=== PATIENT | male | born 2000 | race Caucasian/White ===

== ENCOUNTER 2024-08-12 06:41 | Outpatient (CLI) | payer BC, SELFPAY ==
--- OUTSIDE RECORDS SUMMARY | 2024-08-12 06:44 | XMS_ITS | Data Portability ---
Author Organization SHANTEL SILVA [facility] [place] Address [address] [place] [address] Care Team Providers Care Clinical Aide Name Role Phone [facility] Primary Care Pro vider Assessment No assessment recorded. Plan of Treatment Reminders Order Date Submit Date Provider Last Modified By Organization Details Last Modified Time Details Appointments None recorded. Lab None recorded. Referral None recorded. Procedures upper endoscopy procedure (EGD) (PROC) 2022 023 [email or web address] [address] [facility], [place], [address], 3 15:24:22 esophagogas troduodenos copy with esophageal dilation (PROC) 2022 023 JUAN DAVID Not available 3 17:20:56 Surgeries None recorded. Imaging None recorded. Medication Orders None recorded. Patient TargetsNo targets recorded. Patient InstructionsNo instructions recorded. Reason for Referral None Reported. Results Created Date Observation Date Name Description Value Unit Range Abnormal Flag Note LastModifiedBy Organization Detail LastModifiedTime Result Notes None recorded. Problems Name Problem SNOMED Code Status Onset Date Resolution Date Notes Provider Name and Address Organization Details Recorded Time Depressive disorder 20048855 Active 2022 SHANTEL Ashton [facility] & [place] 3 13:29:10 Dysphagia 74517509 Active 2022 SHANTEL Ashton [facility] & [place] 3 13:37:22 Suicidal 170035069 Active 2022 Bridget teixeira, [place] - [facility] - [place] & [place] 3 13:37:31 Gastro-esopha geal reflux disease with esophagitis 824237327 Active 2022 Marquita Torres NP [address], [address], [place], [address], [place] - [facility] [place] & [place] 3 13:46:24 Stricture of esophagus 40254345 Active 2022 Marquita Torres NP [address], [address], [place], [address], [place] - [facility] - [place] & [place] 15:07:55 Problem Notes None recorded. Procedures Surgical History Date Name Laterality Status Provider Name and Address Organization Details Recorded Time 01/21/2023 EGD/Endosc opy completed Christianne Elam SHANTEL - [facility] - [place] & [place] 01/23/2023 15:54:09 12/17/2022 EGD/Endosc opy completed Christianne Elam SHANTEL - [facility] - [place] & [place] 12/31/2022 14:21:49 07/16/2022 EGD/Endosc opy completed Marquita Torres NP [address], [address], [place], [address], [place] - [facility] [place] & [place] 07/23/2022 13:42:24 Imaging Results None recorded. Procedure Notes None recorded. Medical Equipment None Reported. Allergies No known drug allergies Medications Name Sig Start Date Stop Date Status Note LastModified by Organization Details LastModified Time quetiapine 25 mg tablet TAKE 1 TABLET BY MOUTH ONCE DAILY AT BEDTIME active Not Available Not Available No t Available venlafaxine ER 37.5 mg capsule,ext ended release 24 hr TAKE 1 CAPSULE BY MOUTH ONCE DAILY active Not Available Not Available No t Available paroxetine 10 mg tablet active Not Available Not Available Not Available trazodone 50 mg tablet TAKE 1 TABLET BY MOUTH ONCE DAILY AT BEDTIME 07/23 completed Not Available Not Available Not Available prednisone 20 mg tablet TAKE 1 TABLET BY MOUTH THREE TIMES DAILY FOR 3 DAYS active Not Available Not Available No t Available lithium carbonate 150 mg capsule TAKE 1 CAPSULE BY MOUTH ONCE DAILY IN THE MORNING active Not Available Not Available No t Available oxcarbazepi ne 300 mg tablet active Not Available Not Available Not Available amitriptyli ne 50 mg tablet TAKE 1 TABLET BY MOUTH ONCE DAILY AT BEDTIME FOR 30 DAYS active Not Available Not Available No t Available amitriptyli ne 25 mg tablet TAKE 1 TABLET BY MOUTH ONCE DAILY AT BEDTIME FOR 30 DAYS active Not Available Not Available No t Available lithium carbonate 300 mg capsule TAKE 1 CAPSULE BY MOUTH ONCE DAILY AT BEDTIME active Not Available Not Available No t Available paroxetine 20 mg tablet TAKE 1 TABLET BY MOUTH ONCE DAILY FOR ANXIETY active Not Available Not Available No t Available pantoprazol e 40 mg tablet,lola yed release Take 1 tablet twice a day by oral route for 30 days. 2022 active Not Available Not Available Not Avai lable bupropion HCl 75 mg tablet TAKE 1 TABLET BY MOUTH TWICE DAILY FOR DEPRESSIO N. DOSES AT 9AM AND 3PM. CRUSH ALL MEDICATIO NS THAT ARE NOT SUSTAINED RELEASE active Not Available Not Available No t Available mirtazapine 15 mg tablet TAKE 1 TABLET BY MOUTH ONCE DAILY active Not Available Not Available No t Available albuterol sulfate HFA 90 mcg/actuati on aerosol inhaler INHALE 2 PUFFS BY MOUTH EVERY 4 HOURS NEEDED active Not Available Not Available No t Available fluoxetine 20 mg capsule TAKE 1 CAPSULE BY MOUTH ONCE DAILY 07/23 completed Not Available Not Available Not Available amoxicillin 875 mg-potassiu m clavulanate 125 mg tablet active Not Available Not Available Not Available aripiprazol e 5 mg tablet TAKE 1 TABLET BY MOUTH AT BEDTIME FOR DEPRESSIO N active Not Available Not Available No t Available bupropion HCl XL 150 mg 24 hr tablet, extended release TAKE 1 TABLET BY MOUTH ONCE DAILY active Not Available Not Available No t Available Vraylar 1.5 mg capsule TAKE 1 CAPSULE BY MOUTH ONCE DAILY active Not Available Not Available No t Available Vraylar 4.5 mg capsule TAKE 1 CAPSULE BY MOUTH ONCE DAILY active Not Available Not Available No t Available Vraylar 3 mg capsule TAKE 1 CAPSULE BY MOUTH ONCE DAILY active Not Available Not Available No t Available Vitals Date Recorded Body height Body mass index (BMI) Body weight Body temperature Oxygen saturation Oxygen saturation in Arterial blood by Pulse oximetry Heart rate Provider Name and Address Organization Details Last Updated DateTime 3 177.8 cm 28.1 kg/m2 69531.1 g 97.7 [degF] 98 % 98 % 95 /min Bridget FUNES BRANDOR [facility] & [place] 3 13:02:19 Date Recorded Body height Body mass index (BMI) Body weight Body temperature Oxygen saturation Oxygen saturation in Arterial blood by Pulse oximetry Heart rate Provider Name and Address Organization Details Last Updated DateTime 3 177.8 cm 28.4 kg/m2 72810.2 9 g 97.6 [degF] 98 % 98 % 86 /min Bridget Burns LPR [facility] & [place] 3 13:22:53 Date Recorded Body height Body mass index (BMI) Body weight Body temperature Oxygen saturation Oxygen saturation in Arterial blood by Pulse oximetry Heart rate Provider Name and Address Organization Details Last Updated DateTime 3 177.8 cm 29.3 kg/m2 39200.8 4 g 97.4 [degF] 99 % 99 % 87 /min Christianne FUNES [facility] & [place] 3 14:19:24 Social History Question Answer Notes LastModified by Organizat ion Details LastModified Time Tobacco Smoking Status Current Every Day Smoker Bridget teixeira SHANTEL [facility] & [place] 07/23/2022 13:37:58 What Is Your Level Of Alcohol Consumption? Occasional [email or web address] Information not available 07/23/2022 Sex: Male Functional Status None recorded. Mental Status None recorded. Family History Relationship Description Onset Age of this Age Resolved Age Notes LastModified by Organization Details LastModified Time Father Diabetes mellitus [email or web address] Not available 07/23 13:37:48 Medical History Condition Response Anxiety Disorder Y Depression Y Past Encounters Encounter ID Performer Location Encounter Start Date Encounter Closed Date Diagnosis/Indication Diagnosis SNOMED-CT Code Diagnosis ICD10 Code Diagnosis Note [id number] Marquita Torres NP [facility] [address] [place] [id number] 07/23/2022 12:45:13 07/23/2022 14:06:36 Gastro-esophageal reflux disease with esophagitis 669976589 K21.00 Slight increase in eosinophil s noted on pathology. Patient continues daily PPI with improvemen t of symptoms at this time. Recommend continued use. Will continue to monitor. Stricture of esophagus 34263874 K22.2 dilated up to 8 mm on EGD 07/16/2022 . Recommend repeat EGD for further evaluation dilatation . [id number] Marquita Torres NP [facility] [address] [place] [address] [place] [id number] 09/24/2022 13:06:20 09/24/2022 14:28:37 Gastro-esophageal reflux disease with esophagitis 907219585 K21.00 Controlled with daily PPI. Recommend continued use. Stricture of esophagus 58660009 K22.2 Dilated up to 8 mm on EGD 07/16/2022 . Patient was scheduled for repeat EGD with dilatation however cancelled procedure. He would like to hold off on scheduling at this time as he reports only mild symptoms at this time. Risks including food impaction were discussed with patient in clinic today. He was encouraged to contact our clinic if he experience s recurrent symptoms or decides to schedule EGD. He did voice understand ing. [id number] [facility] ions at [place] [address] [facility] SHANTEL GARCIA [address] 11/17/2022 15:41:46 11/24/2022 16:25:06 [id number] [facility] Intervent ions at [address] SHANTEL GARCIA [address] 12/05/2022 11:21:16 12/05/2022 11:52:03 [id number] DARRYL Zelaya [facility] [address] [place] [address] desiree Christopher SH[place]EL [place] [id number] 12/31/2022 13:55:02 12/31/2022 15:49:28 Esophageal dysphagia 98196495 R13.19 Most recent EGD from 12/17/22 notable for severe stricture in the proximal esophagus, dilated to 12 mm. Pt notes some improvemen t, continues to have difficulty swallowing large pills. We will get him scheduled in short term follow up EGD. EGD scheduled for 01/21/23. Erosive esophagitis 4070 9000 K22.10 Continue BID PPI at this time. Will evaluate further at time of repeat EGD. Health Concerns Section Related Observation LastModified by Organization Detai ls LastModified Time None Recorded Concern Status LastModified by Organization Details LastModified Time None Recorded Advance Directives Directive None Recorded Payers Encounter Date Sequence Insurance Name Policy Number Policy Garcia Covered Member ID Garcia Member ID Guarantor Name 07/23/2022 1 [place] [id number] Santy T Erik [id number] Santy Erik 09/24/2022 1 [place] [id number] Santy T Erik [id number] Santy Erik 12/31/2022 1 [place] [id number] Santy T Erik [id number] Santy Erik Notes Date Note Type Note Provider Name and Address Organization Details Recorded Time 07/23/2022 text/html Patient returns to clinic today for follow-up on EGD 07/16/2022. EGD with severe stricture noted which the scope could not bypass. Dilatation was performed with dilating balloon up to 8 mm. Pathology slightly increased eosinophils. Patient continues pantoprazole 40 mg daily with improved symptoms of dysphagia at this time. No abdominal pain, N/V. Marquita Torres NP [address] [facility], [facility] [address], [address], [facility] 08/04/2022 15:09:24 09/24/2022 text/html Patient returns to clinic today for follow up. He was previously scheduled for repeat EGD wtih dilation however canceled. He continues Pantoprazole 40 mg daily. Reports only mild dysphagia to medications first thing in the morning. EGD 07/16/22 with severe stricture noted which the scope could not bypass. Dilatation was performed with dilating balloon up to 8 mm. Marquita Torres NP [address] [facility], [address], [address], [facility] 09/24/2022 14:16:29 12/31/2022 text/html This is a 22-year-old male seen today in follow up. He underwent EGD initially in June 2022 for severe dysphagia, severe stricture noted at that time of proximal esophagus, dilated to 8 mm. He did not keep scheduled f/u however was readmitted to [facility] psych unit recently and noted severe dysphagia with swallowing pills. EGD performed 12/17/22 showed esophageal stricture again in the proximal esophagus, dilation achieved to 12 mm. Severe erosive esophagitis noted. He has been on BID PPI therapy since that time. States he still has some issues swallowing large pills but overall is noticing some improvement of dysphagia. DARRYL Zelaya [address] [place] [address] Drive, [address], [place], [address], [facility] - [place] - [place] & [place] 12/31/2022 15:37:34
--- NOTE | 2024-08-12 07:00 | CT_ITS ---
FINAL REPORT TECHNIQUE: Multiple axial CT sections were performed through the face without IV contrast. Coronal and sagittal reconstruction images were performed. This study was performed with techniques to keep radiation doses as low as reasonably achievable (ALARA). Individualized dose reduction techniques using automated exposure control or adjustment of mA and/or kV according to the patient's size were employed. CLINICAL HISTORY: Chronic sinusitis/nasal blockage COMPARISON: None FINDINGS: There is extensive lobular mucoperiosteal thickening throughout the maxillary, ethmoid, frontal, and sphenoid sinuses. There is near complete opacification of the frontal and ethmoid sinuses. There is complete obstruction of the ostiomeatal units bilaterally. There is an air-fluid level in the left maxillary sinus. The mastoid air cells are hypoplastic. IMPRESSION: Acute and chronic pansinusitis with bilateral obstructed ostiomeatal units. Reviewed, Interpreted and Dictated by Zev Merritt MD Transcribed by Michelle aRy Authenticated and [facility]
== END 2024-08-12 23:59 | disposition home or self-care (01) ==
LOC: RAD 06:42
PROVIDERS: PCP Nurse Practitioner; Visit Provider Nurse Practitioner
DX: J32.4 Chronic pansinusitis (principal)
CPT/HCPCS: 70486

== ENCOUNTER 2025-03-22 18:56 | Emergency (ER) | payer BC, SELFPAY ==
--- OUTSIDE RECORDS SUMMARY | 2025-02-02 13:30 | XMS_ITS | Encounter Summary ---
Author Organization Healthcare Address [address] [place] [address] Care Team Providers Care Retail Event And Sales Assistant Name Role Phone Gwyn Green MD Primary Care Provider [phone] Reason for Visit * Reason Comments Follow-up Encounter Details Date Type Department Care Team (Late st Contact Info) Description 02/02/2025 2:30 PM EDT [facility] Visit [facility] [address] [place] [address] Clinton Wilson MD [address] [place] [address] History of endoscopic sinus surgery (Primary Dx); History of nasal septoplasty; Nasal polyp Social History Tobacco Use Types Packs/Day Years Used Date Smoking Tobacco: Never Passive Smoke Exposure: Past Smokeless Tobacco: Never Tobacco Cessation:Counseling Given: Not Answered Alcohol Use Standard Drinks/Week Comments Never 0 (1 standard drink = 0.6 oz pur e alcohol) AUDIT-C Answer Date Recorded Q1: How often do you have a drink containing alcohol? Never 10/06/2024 Q2: How many drinks containi ng alcohol do you have on a typical day when you are drinking? Patient does not drink Q3: How often do you have si x or more drinks on one occasion? Never 10/06/2024 Sex and Gender Information Value Date Recorded Sex Assigned at Not on file Legal Sex Male 6:03 PM EDT Gender Identity Not on file Sexual Orientation Not on file documented as of this encounter Last Filed Vital Signs Vital Sign Reading Time Taken Comments Blood Pressure 128/75 02/02/2025 2:25 PM EDT Pulse 78 02/02/2025 2:25 PM EDT Temperature - - Respiratory Rate - - Oxygen Saturation - - Inhaled Oxygen Concentration - - Weight 111 kg (244 lb 11.4 oz) 02/02/2025 2:25 P M EDT Height 172.7 cm (5' 8 ) 02/02/2025 2:25 PM EDT Body Mass Index 37.21 02/02/2025 2:25 PM EDT documented in this encounter Miscellaneous Notes * Progress Notes - Jarret Alexander MD - 02/02/2025 2:30 PM EDT Santy Valencia is a 24 y.o. male history of septoplasty and endoscopic sinus surgery with me on 01-11-25 who was seen back in the [facility] today in follow up regardingright eye pain in the postoperative. Patient reports that he has had worsening right eye pain and vision changes since surgery. Initially he reports it was a constant pressure but now has become fairly constant sharp eye pain. Particularly he isolates the pain to the inferior medial aspect of the orbital. He also reports intermittent vision changes. Particularly he endorses blurry vision 20-30 minutes but for the 1st time this morning it lasted 3-4 hours. Episode has resolved spontaneously. Also reports intermittent epistaxis which initially started on the right side but is on the left today.He reports he has been doing nasal irrigations daily and trying to remember to do them twice daily he also has done the propylene glycol nasal sprays. His 14 point review of systems, family and social history are otherwise negative as reported by ourpatient history form. He denies any constitutional symptoms. Current Medications[1] Allergies: Pineapple PERTINENT SOCIAL HISTORY: He reports no history of alcohol use. He reports no history of drug use. He reports that he has never smoked. He has been exposed to tobacco smoke. He has never used smokeless tobacco. BP 128/75 (BP Location: Left arm, Patient Position: Sitting, BP Cuff Size: Large adult) Pulse 78 Ht 1.727 m (5' 8 ) Wt 111 kg (244 lb 11.4 oz) BMI 37.21 kg/m?? Physical examination today reveals a severely obese (BMI 35-40) male in no apparent distress normal extraocular. Extraocular motions intact without pain. Appropriate pupillary response to light. Mild periorbital edema on the right with tenderness to palpation of inferior orbital rim. Procedure: Nasal/sinus debridement Indications: Chronic rhinosinusitis following ESS Anesthesia: Topical Consent: Verbal consent obtained Description: The patient's nose was topically prepped with 2% lidocaine/phenylephrine nasal spray. Several minutes were observed for the medication to work. The right nasal passage was examined with a 30?? 2.8 mm wide angle nasal endoscope and mild crusting was noted that was debrided under endoscopic guidance with a variety of forceps and suctions. The ostiomeatal complex was noted to be patent , inflamed consistent with polypoid changes. Scope exam today shows mild crusting in right and inflammatory changes. I suspect these postoperative inflammatory changes are putting pressure on the periorbita and resulting in the patient's visionchanges and pain. I would like him to start prednisone taper as I suspect this will significantly improve his swelling in the symptoms. The patient was given instructions on nasal care and reminded of the importance of hydration and lubrication, steaming, and saline irrigations and will follow-up with me in in a month. The patient was seen and examined with Dr. Alexander and I agree with his assessment and plan as described in our note. Digital speech recognition software was used to dictate this note and, despite allefforts to proofread, some dictation errors may occur. Complexity of Care: The evaluation of this patient today was of LOW COMPLEXITY in the medical decision-making process. The number of diagnoses and management options necessary for their evaluation were 1 self limited orminor problem and 1 acute complicated injury, the amount and/or complexity of the data that I reviewed was LEVEL: Straight-forward (Minimal or none) and the risks of complications and/or morbidity ormortality of the recommendations for this patient's care were LEVEL Straight-Forward (Minimal). [1] Current Outpatient Medications: Breyna 160-4.5 MCG/ACT inhaler, Inhale 2 puffs 2 times a day., Disp: , Rfl: escitalopram (Lexapro) 10 MG tablet, Take 1 tablet by mouth daily., Disp: , Rfl: Hypertonic Nasal Wash (Sinus Rinse Bottle Kit) pack, Administer 1 Squirt into each nostril 3 times a day., Disp: 5 each, Rfl: 3 ipratropium-albuterol (Duo-Neb) 0.5-2.5 mg/3 mL nebulizer solution, USE 1 AMPULE IN NEBULIZER 4 TIMES DAILY NEEDED, Disp: , Rfl: ondansetron ODT (Zofran-ODT) 4 MG disintegrating tablet, Dissolve 1 tablet on the tongue every 8 hours as needed for nausea or vomiting., Disp: 20 tablet, Rfl: 0 PARoxetine (Paxil) 20 MG tablet, Take 1 tablet by mouth daily., Disp: , Rfl: propylene glycol 15 % nasal spray, Administer 2 sprays into each nostril every 1 hour. Every 1 hourwhile awake, Disp: 50 mL, Rfl: 3 HYDROcodone-acetaminophen ([place]) 5-325 MG tablet, Take 1 tablet by mouth every 6 hours as needed for severe pain. (Patient not taking: Reported on 02/02/2025), Disp: 25 tablet, Rfl: 0 Cosigned by Clinton Wilson MD at 02/03/2025 7:57 AM EDT Associated attestation - Clinton Wilson MD - 02/03/2025 7:57 AM EDT The patient was seen and examined with Dr. Alexander, I discussed and I agree with their assessment and plan as described in our note. I was also present for the procedures performed. documented in this encounter Plan of Treatment Not on file documented as of this encounter Visit Diagnoses Diagnosis History of endoscopic sinus surgery- Primary History of nasal septoplasty Other postprocedural status Nasal polyp Unspecified nasal polyp documented in this encounter Additional Health Concerns Assessment Noted Time A Body Mass Index follow-up plan has been documented for the patient 02/03/2025 7:57 AM EDT documented as of this encounter Care Teams Retail Event And Sales Assistant Relationship Specialty Start Date End Date Gwyn Green MD [address] [place] [address] PCP - General 09/07/20 documented as of this encounter
--- OUTSIDE RECORDS SUMMARY | 2025-03-03 10:50 | XMS_ITS | Encounter Summary ---
Author Organization Healthcare Address [address] [place] [address] Care Team Providers Care Diagnostic Assistant Name Role Phone Gwyn Green MD Primary Care Provider [phone] Encounter Details Date Type Department Care Team (Late st Contact Info) Description 03/03/2025 10:50 AM EST Office Visit [place] [facility] Ot[facility]ology [address], [address] [place] [address] Clinton Wilson MD [address] [place] [address] History of endoscopic sinus surgery (Primary Dx); Nasal crusting; Nasal polyp Social History Tobacco Use Types [...] Sign Reading Time Taken Comments Blood Pressure 134/83 03/03/2025 10:56 AM EST Pulse 93 03/03/2025 10:56 AM EST Temperature - - Respiratory Rate - - Oxygen Saturation - - Inhaled Oxygen Concentration - - Weight 116 kg (255 lb 11.7 oz) 03/03/2025 10:56 AM EST Height 175.3 cm (5' 9 ) 03/03/2025 10:56 AM EST Body Mass Index 37.77 03/03/2025 10:56 AM EST documented in this encounter Miscellaneous Notes * Progress Notes - Mindi Marshall MD - 03/03/2025 10:50 AM EST Santy Valencia is a 24 y.o. male history of septoplasty and endoscopic sinus surgery with wv on 01-11-25 who was seen back in the [facility] today in follow up after surgery. He reports his eye symptoms have resolved since his last visit. He is using his rinses twice daily and reports this is working well for him. His 14 point review of systems, family [...] He has never used smokeless tobacco. BP 134/83 (BP Location: Left arm, Patient Position: Sitting, BP Cuff Size: Large adult) Pulse 93 Ht 1.753 m (5' 9 ) Wt 116 kg (255 lb 11.7 oz) BMI 37.77 kg/m?? Physical examination today reveals a severely obese (BMI 35-40) male in no apparent distress normal extraocular. Extraocular motions intact without pain. No periorbital edema or erythema. Procedure: Nasal/sinus debridement Indications: Chronic rhinosinusitis following ESS Anesthesia: Topical Consent: Verbal consent obtained Description: The patient's nose was topically prepped with 2% lidocaine/phenylephrine nasal spray. Several minutes were observed for the medication to work. The right nasal passage was examined with a 30?? 2.8 mm wide angle nasal endoscope and mild crusting was noted on the right along the ethmoidsand maxillary antrostomy. that was debrided under endoscopic guidance with a variety of forceps andsuctions. The ostiomeatal complex was noted to be patent inflamed consistent with polypoid changes bilaterally. The Chika score was 2 bilaterally. Scope exam today shows mild crusting in right and continued polypoid inflammatory changes. Based onhis exam today, I recommend starting Dupixent. He has filled out the paperwork and will hopefully start this soon. His postoperative eye symptoms have resolved. The patient was given instructions on nasal [...] awake, Disp: 50 mL, Rfl: 3 HYDROcodone-acetaminophen (Cameron) 5-325 MG tablet, Take 1 tablet by mouth every 6 hours as needed for severe pain. (Patient not taking: Reported on 03/03/2025), Disp: 25 tablet, Rfl: 0 Cosigned by Clinton Wilson MD at 03/06/2025 7:59 AM EST Associated attestation - Clinton Wilson MD - 03/06/2025 7:59 AM EST The patient was seen and examined with Dr. Marshall, I discussed and I agree with their assessment and plan as described in our note. I was also present for the procedures performed. documented in this encounter Plan of Treatment Not on file documented as of this encounter Visit Diagnoses Diagnosis History of endoscopic sinus surgery- Primary Nasal crusting Nasal polyp Unspecified nasal polyp documented in this encounter Additional Health Concerns Assessment Noted Time A Body Mass Index follow-up plan has been documented for the patient 03/06/2025 7:59 AM EST documented as of this encounter Care Teams Diagnostic Assistant Relationship Specialty Start Date End Date Gwyn Green MD [facility] [employer] [facility] [address] [place] [address] PCP - General 09/07/20 documented as of this encounter
--- OUTSIDE RECORDS SUMMARY | 2025-03-22 05:27 | XMS_ITS | Continuity of Care Document ---
Author Organization [facility] Phone Care Team Providers Care Dental Laboratory Manager Name Role Phone KESHAV ABAD Marnie Primary Care JOY GRAHAM Unavailable JOY GRAHAM Admitting JOY GRAHAM Primary Attending ALLERGIES AND ADVERSE REACTIONS ALLERGIES AND ADVERSE REACTIONS Code System Allergy Substance Adverse Reaction Date Reaction (Severity) Comment Status Reported By Updated By Ave (Free Text Allergy) Shortness of breath/diffic ulty breathing (Mild) Shock active [id number] on March 21, 2025 3:56:[address] [facility] FAMILY HISTORY RELATION: Father Status: LIVING SNOMED-CT Diagnosis Age At Onset Information not available RELATION: Mother Status: LIVING SNOMED-CT Diagnosis Age At Onset Information not available RESULTS Patient: JOLENE CAMACHO Date of : [birth year] LABORATORY RESULTS ORDER 100: COMP METABOLIC PA SONDRA (LOINC: 48984-0) ORDER DATE: March 21, 2025 2:48:00 AM UT Specimen Source: Plasma Specimen Type: Plasma specim en PERFORMING LAB: [address] [id number] Result Comment: Final Result Date: March 21, 2025 3:11:00 AM UT (TECH: SF) LOINC TEST FLAG RESULT REFERENCE RANGE UPDA SANGEETA BY 2951-2 Sodium [Moles/volume ] in Serum or Plasma N 137 mmol/L 136 mmol/L - 145 mmol/L March 21, 2025 3:11:00 AM UT (TECH: SF) 2823-3 Potassium [Moles/volume] in Serum or Plasma L 3.4 mmol/L 3.5 mmol/L - 5.1 mmol/L March 21, 2025 3:11:[address] [facility] ([employer]: [employer]) 5-0 Chloride [Moles/volume] in Serum or Plasma N 102 mmol/L 98 mmol/L - 107 mmol/L March 21, 2025 3:11:[address] [facility] ([employer]: [employer]) 2027-9 Carbon dioxide, tota l [Moles/volume] in Serum or Plasma N 25 mmol/L 21 mmol/L - 32 mmol/L March 21, 2025 3:11:[address] [facility] ([employer]: [employer]) 79314-4 Anion gap 3 in Serum or Plasma N 10.0 March 21, 2025 3:11:[address] [facility] ([employer]: [employer]) 2345-7 Glucose [Mass/volume ] in Serum or Plasma N 110 mg/dL 70 mg/dL - 110 mg/dL March 21, 2025 3:11:[address] [facility] ([employer]: [employer]) 3094-0 Urea nitrogen [Mass/volume] in Serum or Plasma N 8 mg/dL 7 mg/dL - 18 mg/dL March 21, 2025 3:11:[address] [facility] ([employer]: [employer]) 2160-0 Creatinine [Mass/volume] in Serum or Plasma N 1.0 mg/dL 0.8 mg/dL - 1.3 mg/dL March 21, 2025 3:11:[address] [facility] ([employer]: [employer]) 3097-3 Urea nitrogen/Creatinine [Mass Ratio] in Serum or Plasma L 8.0 - March 21, 2025 3:11:[address] [facility] ([employer]: [employer]) 00807-4 Glomerular filtratio n rate/1.73 sq M.predicted by Creatinine-based formula (MDRD) N 108 mL/min >60 March 21, 2025 3:11:[address] [facility] (TECH: [employer]) 14356-7 Osmolality of Serum or Plasma by calculated by sum of electrolytes N 284 mosm/kg 275 mosm/kg - 301 mosm/kg March 21, 2025 3:11:[address] [facility] (TECH: [employer]) 2885-2 Protein [Mass/volume ] in Serum or Plasma N 7.3 g/dL 6.4 g/dL - 8.2 g/dL March 21, 2025 3:11:[address] [facility] ([employer]) 1751-7 Albumin [Mass/volume ] in Serum or Plasma N 3.9 g/dL 3.4 g/dL - 5.0 g/dL March 21, 2025 3:11:[address] [facility] ([employer]: [employer]) 81954-8 Calcium [Mass/volume ] in Serum or Plasma N 8.9 mg/dL 8.5 mg/dL - 10.1 mg/dL March 21, 2025 3:11:[address] [facility] ([employer]) 52914-5 Calcium [Mass/volume ] corrected for total protein in Serum or Plasma N 9.0 mg/dL 8.5 mg/dL - 10.1 mg/dL March 21, 2025 3:11:[address] [facility] ([employer]) 1975-2 Bilirubin.total [Mass/volume] in Serum or Plasma L 0.3 mg/dL 0.4 mg/dL - 1.5 mg/dL March 21, 2025 3:11:[address] [facility] ([employer]) 1920-8 Aspartate aminotransferase [Enzymatic activity/volume] in Serum or Plasma N 24 U/L 15 U/L - 37 U/L March 21, 2025 3:11:[address] [facility] ([employer]) 1742-6 Alanine aminotransferase [Enzymatic activity/volume] in Serum or Plasma N 50 U/L 12 U/L - 78 U/L March 21, 2025 3:11:[address] [facility] ([employer]: [employer]) 6768-6 Alkaline phosphatase [Enzymatic activity/volume] in Serum or Plasma N 98 U/L 50 U/L - 170 U/L March 21, 2025 3:11:[address] [facility] ([employer]: [employer]) ORDER 200: CBC AUTO W DIFF ( LOINC: 62572-1) ORDER DATE: March 21, 2025 2:48:[address] [facility] Specimen Source: Whole Blood Specimen Type: Whole blood s ample PERFORMING LAB: [address] [id number] Result Comment: Final Result Date: March 21, 2025 2:59:[address] [facility] (TECH: [employer]) LOINC TEST FLAG RESULT REFERENCE RANGE UPDA SANGEETA BY 6690-2 Leukocytes [#/volume] in Blood by Automated count N 8.8 10^3/uL 4.5 10^3/uL - 11.5 10^3/uL March 21, 2025 2:59:00 AM UTC ([employer]) 789-8 Erythrocytes [#/volume] in Blood by Automated count N 4.82 10^6/uL 4.25 10^6/uL - 5.57 10^6/uL March 21, 2025 2:59:00 AM UTC ([employer]) 718-7 Hemoglobin [Mass/volume] in Blood N 14.7 g/dL 13.5 g/dL - 17.2 g/dL March 21, 2025 2:59:00 AM UTC (TECH: [employer]) 90236-9 Hematocrit [Volume Fraction] of Blood N 42.6 % 42.0 % - 52.0 % March 21, 2025 2:59:00 AM UTC ([employer]) 787-2 Erythrocyte mean corpuscular volume [Entitic volume] by Automated count N 88.4 fl 80 fl - 95 fl March 21, 2025 2:59:00 AM UTC ([employer]) 20681-7 Erythrocyte mean corpuscular hemoglobin [Entitic mass] in Blood from Fetus by Automated count N 30.5 pg 27.0 pg - 34.0 pg March 21, 2025 2:59:00 AM UTC ([employer]) 28271-4 Erythrocyte mean corpuscular hemoglobin concentration [Mass/volume] in Blood from Fetus by Automated count N 34.5 g/dL 32.0 g/dL - 36.0 g/dL March 21, 2025 2:59:00 AM UTC ([employer]) 25519-2 Platelets [#/volume] in Blood N 263 10^3/uL 150 10^3/uL - 450 10^3/uL March 21, 2025 2:59:00 AM UTC (TECH: [employer]) 31766-4 Erythrocyte distribution width [Ratio] L 12.1 % 12.3 % - 15.1 % March 21, 2025 2:59:00 AM UTC (TECH: [employer]) 03990-6 Platelet mean volume [Entitic volume] in Blood by Automated count H 11.2 fl 7.4 fl - 10.4 fl March 21, 2025 2:59:00 AM UTC (TECH: [employer]) 98750-9 Granulocytes/100 leukocytes in Blood by Automated count N 68.8 % 40 % - 75 % March 21, 2025 2:59:00 AM UTC (TECH: SF) 736-9 Lymphocytes/100 leukocytes in Blood by Automated count L 11.7 % 15 % - 57 % March 21, 2025 2:59:00 AM UTC (TECH: SF) 5905-5 Monocytes/100 leukocytes in Blood by Automated count H 13.3 % 4.0 % - 12.0 % March 21, 2025 2:59:00 AM UTC (TECH: SF) 713-8 Eosinophils/100 leukocytes in Blood by Automated count H 5.4 % 0.0 % - 4.0 % March 21, 2025 2:59:00 AM UTC (TECH: SF) 706-2 Basophils/100 leukocytes in Blood by Automated count N 0.7 % 0.0 % - 1.0 % March 21, 2025 2:59:00 AM UTC (TECH: SF) 15230-9 Immature granulocytes [#/volume] in Blood N 0.1 % 0.0 % - 0.8 % March 21, 2025 2:59:00 AM UTC (TECH: SF) 06543-2 Granulocytes [#/volume] in Blood by Automated count N 6.07 10^3/uL March 21, 2025 2:59:00 AM UTC (TECH: SF) 731-0 Lymphocytes [#/volume] in Blood by Automated count N 1.03 10^3/uL March 21, 2025 2:59:00 AM UTC (TECH: SF) 742-7 Monocytes [#/volume] in Blood by Automated count N 1.17 10^3/uL March 21, 2025 2:59:00 AM UTC (TECH: SF) 711-2 Eosinophils [#/volume] in Blood by Automated count N 0.48 10^3/uL March 21, 2025 2:59:00 AM UTC (TECH: SF) 704-7 Basophils [#/volume] in Blood by Automated count N 0.06 10^3/uL March 21, 2025 2:59:00 AM UTC (TECH: SF) 79078-7 Immature granulocytes [#/volume] in Blood N 0.01 10^3/uL March 21, 2025 2:59:00 AM UT (TECH: SF) 23959-7 Manual differential performed [Presence] in Blood N NO March 21, 2025 2:59:00 AM UT (TECH: SF) ORDER 300: TROPONIN I 1 HOUR PROTOCOL (LOINC: 54204-1) ORDER DATE: March 21, 2025 2:48:00 AM UTC Specimen Source: Plasma Specimen Type: Plasma specim en PERFORMING LAB: [place] [id number] Result Comment: Final Result Date: March 21, 2025 4:08:00 AM UT (TECH: SF) LOINC TEST FLAG [place] [address]-3 Troponin I.cardiac panel - Serum or Plasma by High sensitivity method N 4 ng/L 0 ng/L - 76 ng/L March 21, 2025 4:08:00 AM UT (TECH: SF) ORDER 600: TROPONIN QUANT (L OINC: 10317-1) ORDER DATE: March 21, 2025 2:48:00 AM UT Specimen Source: Plasma Specimen Type: Plasma specim en PERFORMING LAB: [address] [id number] Result Comment: Final Result Date: March 21, 2025 3:11:00 AM UT (TECH: SF) LOINC TEST FLAG [place] [address]-0 Troponin I.cardiac panel - Serum or Plasma by High sensitivity method N 4 ng/L 0 ng/L - 76 ng/L March 21, 2025 3:11:00 AM UT (TECH: SF) ORDER 700: B-TYPE NATRIURETI C PEPTIDE BNP (LOINC: 87521-1) ORDER DATE: March 21, 2025 2:48:00 AM UT Specimen Source: Whole Blood Specimen Type: Whole blood s ample PERFORMING LAB: [address] [id number] Result Comment: Final Result Date: March 21, 2025 3:11:00 AM UT (TECH: SF) LOINC TEST FLAG [place] [address]-1 Natriuretic peptide B [Mass/volume] in Serum or Plasma N 5.3 pg/mL 0.0 pg/mL - 100 pg/mL March 21, 2025 3:11:00 AM UT (TECH: SF) ORDER 1100: D-DIMER QUANTITA TIVE (LOINC: 7799-0) ORDER DATE: March 21, 2025 2:48:00 AM UTC Specimen Source: Plasma Specimen Type: Plasma specim en PERFORMING LAB: [address] [id number] Result Comment: Final Result Date: March 21, 2025 3:25:00 AM UT (TECH: SF) LOINC TEST FLAG RESULT REFERENCE RANGE UPDA SANGEETA BY 7799-0 Fibrin D-dimer [Units/volume] in Platelet poor plasma N 276 ng/mL 0 ng/mL - 500 ng/mL Novembe r 2024 3:25:00 AM UT (TECH: SF) LABORATORY NARRATIVE RESULTS Information is not available RADIOLOGY RESULTS ORDER 800: CHEST SINGLE VIEW /PORTABLE (LOINC: 37626-5) ORDER DATE: March 21, 2025 2:48:[address] [facility] PERFORMING LAB: [address] [id number] Final Result Date: March 21, 2025 3:06:[address] [place] [address] Name: GERMAIN FERNÁNDEZ Exam Date: 03/20/2025 : 2000 Age 24 years Gender: M Physician: JOY GRAHAM Facility: [facility] Facility HSV: Outpatient Exam: CHEST SINGLE VIEW/PORTABLE EXAM DESCRIPTION: CHEST SINGLE VIEW/PORTABLE CLINICAL HISTORY: 24 years Male, TECHNIQUE: A single AP portable view of the chest was obtained. COMPARISON: Chest radiograph 05/23/2024 FINDINGS: The cardiomediastinal silhouette is unremarkable. The lungs show no consolidation or other acute abnormality. No pleural effusion or pneumothorax is evident. The bones show no acute abnormality. IMPRESSION: No acute cardiopulmonary process. Electronically signed by: Alfredo Duran MD 03/20/2025 10:09 PM [facility] Dictated By: Alfredo Duran Transcribed By: Transcribed On: 03/20/2025 10:06 PM Electronically signed by: Alfredo Duran 03/20/2025 Thank you for referring EGRMAIN FERNÁNDEZ to [facility]. Legally authenticated by ELIZ KRAUSE MD 2025-03-20 22:06:00 PATHOLOGY NARRATIVE RESULTS Information is not available MICROBIOLOGY RESULTS No Micro Labs/Results Exist for Patient BLOOD ADMIN RESULTS Information is not available TREATMENT PLAN DISCHARGE MEDICATIONS Status RXNORM Medication Dose Route Frequency Dates Comments U pdated By Patient discharge medication information is not available. PATIENT OPEN ORDERS Code System Descripti on Frequency Occurrenc es Priority Category [place] [address] [facility] EKG study ONE TIME 0 Stat Novem 2024 2:48:[address] [facility] SANTOS Pablo MD [id number] on March 21, 2025 2:48:[address] [facility] SCHEDULED PROCEDURES Code System Description Status Scheduled Date Upd ated By Patient scheduled procedure information is not available. MEDICATIONS HOME MEDICATIONS Status RXNORM NDC Medication Dose Route Frequency Dates Comments Reported By Updated By Active [id number] 85906 79697 0 albuterol sulfate 90 mcg/actuati on HFA Aerosol Inhaler 2.0 INH INHALED PRN Last Dose: [id number] on March 21, 2025 3:56:[address] [facility] Active 418890 31145 40965 1 Lexapro 10 mg tablet 1.0 TAB ORAL DAILY Last Dose: [id number] on March 21, 2025 3:56:[address] [facility] DISCHARGE MEDICATIONS Status RXNORM NDC Medication Dose Route Frequency Dates Dis pense Data Comments Physician Updated By No Discharge Medication Info rmation Available INPATIENT MEDICATIONS Status RXNORM NDC Medication Dose Route Frequency Rat e Quantity Dates Indication Dispense Data Comments Physician Updated By Kahlil inued [id number] 3437 157 METHYLPREDN ISOLONE SODIUM SUCC 125 MG SOLR 125.0 MG INTRAV ENOUS ONE TIME ONLY Start: 2024 3:11:0 0 AM UT End: 2024 3:11:[address] [facility] SANTOS Pablo MD INTERF ED on March 21, 2025 3:10:[address] [facility] Discont inued [id number] 1962 197 famotidine (PEPCID) 20 MG/2ML SOLN 20.0 MG INTRAV ENOUS ONE TIME ONLY Start: 2024 3:11:0 0 AM UT End: 2024 3:11:0 0 AM UTC SANTOS Pablo MD INTERFAC ED on March 21, 2025 3:10:00 AM UTC Discont inued [id number] 2265 7020 101 DUONEB 0.5-2.5 MG/3 ML SOLN 1.0 NEB INHALE D ONE TIME ONLY Start: 2024 3:14:0 0 AM UTC End: 2024 3:14:0 0 AM UTC SANTOS Pablo MD INTERFAC ED on March 21, 2025 3:12:00 AM UTC Discont inued [id number] 1046 5531 911 KLOR-CON M20 20 MEQ TBCR 20.0 MEQ ORAL ONE TIME ONLY Start: 2024 3:44:0 0 AM UTC End: 2024 3:44:0 0 AM UTC SANTOS Pablo MD INTERFAC ED on March 21, 2025 3:42:00 AM UTC SOCIAL HISTORY SOCIAL HISTORY - Smoking Status SNOMED-CT Social History Element Description Effective Dates Offered Cessation Comment Updated By [id number] Current Tobacco smoking status Current Every Day Smoker [id number] on March 21, 2025 3:56:50 AM UT SOCIAL HISTORY - Gender Sex: Male SOCIAL HISTORY - Status : status i nformation is not available Intention in Next Year: intention information is not available SOCIAL HISTORY - Assessments Code System Description Status Date Value of Assessment Updated By Comment Assessment Information is no t available SOCIAL HISTORY - Creek Affiliation Creek information is not av ailable SOCIAL HISTORY - Legal Sex Legal Sex information is not available SOCIAL HISTORY - Sexual Behavior Sexual Orientation Gender Identity SNOMED-CT Description SNO MED -CT Description Activity Level No of Partners Partner Type UpdatedBy Information is not available SOCIAL HISTORY - Occupation Occupation information is no t available VITAL SIGNS PATIENT VITAL SIGNS This section displays the mo st recent value for each vital sign as of March 22, 2025 10:27:16 AM UT Loinc Code Vital Sign Activity Date Result Updated By 8310-5 Body temperature March 21 4:11:00 AM UTC 98.4 [degF] 13814-2 Body weight Measured February 3:52:42 AM UTC 102.2 kg (225.0 lb) [id number] on March 21, 2025 3:52:42 AM UTC 8462-4 Diastolic blood pressure March 21, 2025 4:11:[address] [facility] 73.0 mm[Hg] 8867-4 Heart rate March 21 4:11:[address] [facility] 99 /min 87853-4 Oxygen saturation in Arterial blood by Pulse oximetry March 21, 2025 4:11:[address] [facility] 98.0 % 9279-1 Respiratory rate March 21 4:11:00 AM UT 18 /min 8480-6 Systolic blood pressure March 21, 2025 4:11:[address] [facility] 150.0 mm[Hg] PEDIATRIC GROWTH CHART - VITAL SIGNS This section displays Head C ircumference Percentile, Weight for Length Percentile and BMI Percentile Loinc Code Pediatric Measure Age (Months) Result Updat ed By No Pediatric Growth Chart Pe rcentile Information Available. HEALTH CONCERNS Problems Concern Status Health Concern problem infor mation not available. Smoking Status Status Years Used Consumed packs p er day Health Concern smoking histo ry information not available. Family History Concern Status Health Concern family histor y information not available. ENCOUNTERS ENCOUNTER INFORMATION Reason for Visit SHORTNESS OF BREATH Admission March 21, 2025 2:31:[address] [id number] Discharge March 21, 2025 4:21:[address] [facility] DISCHARGED TO HOME OR SELF CARE ENCOUNTER DIAGNOSES Notes information is not erin ilable. Code System Diagnosis Onset Date Diagnosis information is not available. ABSTRACT DIAGNOSES Code System Diagnosis Updated By Abatement Date R06.02 ICD10 SHORTNESS OF BREATH [id number] on March 22, 2025 10:25:[address] [facility] R09.3 ICD10 ABNORMAL SPUTUM [id number] on N ov2024 10:26:[address] [facility] R42 ICD10 DIZZINESS AND GIDDINESS [id number] on March 22, 2025 10:26:[address] [facility] J45.20 ICD10 MILD INTERMITTEN T ASTHMA, UNCOMPLICATED [id number] on March 22, 2025 10:26:[address] 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 F41.9 ICD10 ANXIETY DISORDER, UNSPECIFIE D [id number] on March 22, 2025 10:26:[address] [facility] F32.A ICD10 DEPRESSION, UNSPECIFIED [id number] on March 22, 2025 10:26:00 AM UTC F17.290 ICD10 NICOTINE DEPENDE NCE, OTHER TOBACCO PRODUCT, UNCOMPLICATED [id number] on March 22, 2025 10:26:00 AM UT Z79.899 ICD10 OTHER HALFWAY (CURRENT) DRUG THERAPY [id number] on March 22, 2025 10:26:00 AM UTC Z71.6 ICD10 TOBACCO ABUSE COUNSELING FRANCO 3519 on March 22, 2025 10:26:[address] [facility] CARE TEAM Care Dental Laboratory Manager Role KESHAV ABAD Primary Care JOY GRAHAM Referring JOY GRAHAM Admitting JOY GRAHAM Primary Attending CARE TEAM CARE women nurse Role on Team Location Telecom Status Start Date End Anshu e Updated By SANTOS Pablo MD, MD Referring normal March 21, 2025 2:52:[address] [facility] March 21, 2025 4:21:[address] [facility] [id number] on March 21, 2025 2:52:[address] [facility] SANTOS Pablo MD, MD Attending normal March 21, 2025 2:52:37 AM UT March 21, 2025 4:21:00 AM UT [id number] on March 21, 2025 2:52:[address] [facility] SANTOS Pablo MD, MD Admitting normal March 21, 2025 2:52:[address] [facility] March 21, 2025 4:21:[address] [facility] [id number] on March 21, 2025 2:52:[address] [facility] JENNIFFER HAQ APRN PCP normal March 21, 2025 2:31:[address] [facility] March 21, 2025 4:21:[address] [facility] [id number] on March 21, 2025 2:52:[address] [facility]
--- NOTE | 2025-03-22 19:06 | XR_ITS ---
PROCEDURE INFORMATION: Exam: XR Chest Exam date and time: 03/22/2025 7:02 PM Age: 24 years old Clinical indication: Cough; Additional info: Cough, mild hemoptysis TECHNIQUE: Imaging protocol: Radiologic exam of the chest. Views: 2 views. COMPARISON: No relevant prior studies available. FINDINGS: Lungs: Unremarkable. No consolidation. Pleural spaces: Unremarkable. No pleural effusion. No pneumothorax. Heart/Mediastinum: Unremarkable. No cardiomegaly. Bones/joints: Unremarkable. IMPRESSION: No acute findings.
[2025-03-22 19:07] VITALS: BP 145/93; PULSE 90; RESP 20; TEMP 36.8; O2SAT 98; BMI 41.3
[2025-03-22 19:12] VITALS: O2SAT 100
--- OUTSIDE RECORDS SUMMARY | 2025-03-22 19:14 | XMS_ITS | Encounter Summary ---
Author Organization [facility] Address [address] [place] [id number] Care Team Providers Care Supervisor Printing Shop Name Role Phone Gwyn Green MD Primary Care Provider [phone] Encounter Details Date Type Department Care Team (Latest Contact Info) Description 03/03/2025 Travel Social History Tobacco Use Types Packs/Day Years Used Date Smoking Tobacco: Never Passive Smoke Exposure: Past Smokeless Tobacco: Never Alcohol Use Standard Drinks/Week Comments Never 0 [...] on file documented as of this encounter Plan of Treatment Not on file documented as of this encounter Visit Diagnoses Not on filedocumented in this encounter Additional Health Concerns Assessment Noted Time A Body Mass Index follow-up plan has been documented for the patient 03/06/2025 7:59 AM EST documented as of this encounter Care Teams Supervisor Printing Shop Relationship Specialty Start Date End Date Gwyn Green MD [address] [place] [address] PCP - General 09/07/20 documented as of this encounter
--- OUTSIDE RECORDS SUMMARY | 2025-03-22 19:14 | XMS_ITS | Encounter Summary ---
Author Organization Healthcare Address [address] [place] [address] Care Team Providers Care Emergency Room Tech Name Role Phone Gwyn Green MD Primary Care Provider [phone] Encounter Details Date Type Department Care Team (Late st Contact Info) Description 08/12/2024 Orders Only External Location [address] [place] [address] Sandra Arroyo APRN [address] [place] [address] Social History Tobacco Use Types Packs/Day Years Used Date Smoking Tobacco: Never Assessed Sex and Gender Information Value Date Recorded Sex Assigned at Not on file Legal Sex Male 6:03 PM EDT Gender Identity Not on file Sexual Orientation Not on file documented as of this encounter Plan of Treatment Not on file documented as of this encounter Procedures Procedure Name Priority Date/Time Associated Diagnosis Comments CT OUTSIDE IMAGES 08/12/2024 7:03 AM EDT documented in this encounter Results * CT OUTSIDE IMAGES (08/12/2024 7:03 AM EDT) Anatomical Region Laterality Modality Computed Tomogra phy 08/12/2024 7:03 AM EDT Sandra Arroyo APRN IMG CT PROCEDURES Final Result documented in this encounter Visit Diagnoses Not on filedocumented in this encounter Care Teams Emergency Room Tech Relationship Specialty Start Date End Date Gwyn Green MD [address] [place], [place] [phone] PCP - General 09/07/20 documented as of this encounter
--- OUTSIDE RECORDS SUMMARY | 2025-03-22 19:14 | XMS_ITS | Clinical Summary ---
Author Organization [facility] Address [address] [place] [address] Care Team Providers Care Environmental Department Manager Name Role Phone Gwyn Green MD Primary Care Provider [phone] Allergies Active Allergy Reactions Criticality Noted Date Comments Pineapple Rash,Shortness of breath High 01/18/2016 Medications Breyna 160-4.5 MCG/ACT inhaler Inhale 2 puffs 2 times a day. 09/03/19 25 Active ipratropium-albute rol (Duo-Neb) 0.5-2.5 mg/3 mL nebulizer solution USE 1 AMPULE IN NEBULIZER 4 TIMES DAILY NEEDED 09/03/19 25 Active PARoxetine (Paxil) 20 MG tablet Take 1 tablet by mouth daily. Active escitalopram (Lexapro) 10 MG tablet Take 1 tablet by mouth daily. Active ondansetron ODT (Zofran-ODT) 4 MG disintegrating tablet Dissolve 1 tablet on the tongue every 8 hours as needed for nausea or vomiting. 20 tablet 01/12/20 25 Active propylene glycol 15 % nasal spray Administer 2 sprays into each nostril every 1 hour. Every 1 hour while awake 50 mL 3 01/12/20 25 Active HYDROcodone-acetam inophen ([place]) 5-325 MG tablet Take 1 tablet by mouth every 6 hours as needed for severe pain. 25 tablet 01/12/20 25 Active Additional Information Patient not taking.Reported on 03/03/2025 Hypertonic Nasal Wash (Sinus Rinse Bottle Kit) pack Administer 1 Squirt into each nostril 3 times a day. 5 each 3 01/12/20 25 025 predniSONE (Deltasone) 10 MG tablet Take 2 tablets by mouth 3 times a day for 3 days, THEN 2 tablets 2 times a day for 3 days, THEN 1 tablet 3 times a day for 3 days, THEN 1 tablet 2 times a day for 3 days, THEN 1 tablet daily for 3 days, THEN 0.5 tablets daily for 4 days. 50 tablet 02/03/20 025 Active Problems Problem Noted Date Diagnosed Date History of endoscopic sinus surgery 01/19/2025 Obesity 01/11/2025 Nasal polyp 11/25/2024 Nasal obstruction 11/25/[address] scan, sinus 11/25/2024 Chronic pansinusitis 11/25/2024 Nasal septal deviation 11/25/2024 Hypertrophy of both inferior nasal turbinates Allergic rhinitis 11/25/2024 Encounters Date Type Department Care Team Description 03/03/2025 10:50 AM EST Office Visit [facility] Otol[facility]ology [facility] [address] [facility] [place] [phone] Clinton Wilson MD History of endoscopic sinus surgery (Primary Dx); Nasal crusting; Nasal polyp 03/03/2025 Travel 02/02/2025 2:30 PM EDT Office Visit [facility] Otolaryngology [facility] [address], [address] [place] [phone] Clinton Wilson MD History of endoscopic sinus surgery (Primary Dx); History of nasal septoplasty; Nasal polyp 02/02/2025 Travel 01/30/2025 Telephone [facility] Otolaryngology [facility] [address] [facility] [place] [address] [place] 01/26/2025 Telephone [facility] Otolaryngology [facility] [address], [address] [place] [phone] Clinton Wilson MD HCN Clinical Concern/Question 01/19/2025 9:20 AM EDT Office Visit [facility] Otolaryngology [address] [place] [address] Clinton Wilson MD Postoperative visit (Primary Dx); History of endoscopic sinus surgery; History of nasal septoplasty 01/19/2025 Travel 01/11/2025 11:35 AM EDT - 01/11/2025 3:00 PM EDT Surgery [facility] [address] [address] Clinton Wilson MD BILATERAL ENDOSCOPIC SINUS SURGERY, NASAL SEPTOPLASTY, POLYPECTOMIES, TURBINATE REDUCTIONS, MEDTRONIC IMAGE GUIDANCE 01/11/2025 11:29 AM EDT Anesthesia Event [address] [phone] Abimael Reyes MD Federspiel, Allison P, XENIA 01/11/2025 9:32 AM EDT - 01/11/2025 6:31 PM EDT Hospital Encounter [address] [address] Clinton Wilson MD Abnormal CT scan, sinus [R93.0] (Primary Dx); Chronic rhinosinusitis with multiple nasal polyps; Nasal septal deviation; Nasal obstruction [J34.89]; Nasal polyp [J33.9]; Hypertrophy of both inferior nasal turbinates [J34.3]; Nasal obstruction Discharge Disposition: Home or Self Care 01/11/2025 Travel from Last 3 Months Family History Medical History Relation Name Comments [place] Brother Relation Name Status Comments Brother Social History Tobacco Use Types Packs/Day Years [...] on file Sexual Orientation Not on file Last Filed Vital Signs Vital Sign Reading Time Taken Comments Blood Pressure 134/83 03/03/2025 10:56 AM EST Pulse 93 03/03/2025 10:56 AM EST Temperature 36.3 C (97.3 F) 01/11/2025 5:15 PM EDT Respiratory Rate 12 01/11/2025 5:40 PM EDT Oxygen Saturation 99% 01/11/2025 5:40 PM EDT Inhaled Oxygen Concentration - - Weight 116 kg (255 lb 11.7 oz) 03/03/2025 10:56 AM EST Height 175.3 cm (5' 9 ) 03/03/2025 10:56 AM EST Body Mass Index 37.77 03/03/2025 10:56 AM EST Plan of Treatment Health Maintenance Due Date Last Done Comments [facility]-Depression Screening 2000 [facility]-HIV Screening 2000 [facility]-Hepatitis C Screening 2000 [facility]-/Child/Adol SDOH Screenings 2000 HPV Vaccines (1 - Male 3-dose series) 12/26/2015 [facility]- SDOH Screenings 2018 [facility]-Adult SDOH Screenings 2018 [facility]-DTaP,Tdap,and Td Vaccines (7 - Td or Tdap) 12/22/2021 12/23/2011, 12/27/2004, 07/05/2002, Additional history exists [id number] Vaccine (1 - season) 2024 [facility]-Influenza Vaccine (#1) 2024 03/11/2024 [facility]-Zoster Vaccines (1 of 2) 2050 10/12/2009, 02/03/2002 [facility]-Hepatitis B Vaccines Completed 002, 02/24/2001, 01/05/2001 [facility]-Pneumococcal Vaccine: Pediatrics (0 to 5 Years) and At-Risk Patients (6 to 49 Years) Aged Out 02/03/2002, 07/06/2001, 05/04/2001, Additional history exists No longer eligible based on patient's age to complete this topic [facility]-HIB Vaccines Completed 12/27/2004, 02/2003, 05/04/2001, Additional history exists [facility]-IPV Vaccines Completed 12/27/2004, 02/2003, 05/04/2001, Additional history exists [facility]-Varicella Vaccines Completed 10/12/2009, 2001 [facility]-Hepatitis A Vaccines Completed 03/10/2014, 11/26 [facility]-Obesity Intervention Completed 025, 02/02/2025, 01/19/2025, Additional history exists [facility]-Rotavirus Vaccines Aged Out No lo nger eligible based on patient's age to complete this topic Procedures Procedure Name Priority Date/Time Associated Diagnosis Comments OXYGEN THERAPY Routine 01/11/2025 4:36 PM EDT SURGICAL PATHOLOGY EXAM Routine 01/11/2025 2:22 PM EDT Chronic rhinosinusitis with multiple nasal polyps Nasal septal deviation PB ANESTHESIA PLACEHOLDER Routine 01/11/2025 11:35 AM EDT DE AN ELECTIVE ENDOTRACHEAL AIRWAY Routine 01/11/2025 11:35 AM EDT POLYPECTOMY, NASAL CAVITY 01/11/2025 11:19 AM EDT Chronic rhinosinusitis with multiple nasal polyps Nasal septal deviation SEPTOPLASTY, NOSE, WITH NASAL TURBINATE REDUCTION 01/11/2025 11:19 AM EDT Chronic rhinosinusitis with multiple nasal polyps Nasal septal deviation SINUS SURGERY, ENDOSCOPIC, USING COMPUTER-ASSISTED NAVIGATION 01/11/2025 11:19 AM EDT Chronic rhinosinusitis with multiple nasal polyps Nasal septal deviation from Last 3 Months Results * Surgical Pathology Exam (01/11/2025 2:22 PM EDT) Case Report Surgical Pathology Case: [id number] Authorizing Provider: Clinton Wilson MD Collected: 01/11/2025 1422 Ordering Location: [facility] Received: 01/11/2025 1647 Surgery Pathologist: Vick Moya MD Specimens: A) - Nasal, Right, right nasal sinus contents B) - Nasal, Right, right nasal ethmoid osteoma C) - Nasal, Left, left nasal sinus contents 01/17/2025 11:02 AM EDT [facility] Final Diagnosis A. RIGHT NASAL SINUS CONTENTS, REMOVAL: - SINONASAL MUCOSA WITH FOCALLY INCREASED EOSINOPHILS >15/HPF AND FRAGMENTS OF SINONASAL POLYP B. RIGHT NASAL ETHMOID, REMOVAL: - MATURE BENIGN BONE COMPATIBLE WITH CLINICAL HISTORY OF OSTEOMA C. LEFT NASAL SINUS CONTENTS, REMOVAL: - SINONASAL MUCOSA WITH FOCALLY INCREASED EOSINOPHILS >15/HPF AND FRAGMENTS OF SINONASAL POLYP 01/17/2025 11:02 AM EDT [facility] at 1102 EDT Clinical Information Chronic rhinosinusitis with multiple nasal polyps [J32.9, J33.9] Nasal septal deviation [J34.2] 01/17/2025 11:02 AM EDT [facility] Gross Description A. RIGHT NASAL SINUS CONTENTS Received in formalin labeled right nasal sinus contents , is an aggregate of pink-red nodular soft tissue fragments measuring 7.4 x 6.3 x 2.4 cm. Change Management Coordinator sections are submitted in cassettes A1 to A3. Cold Time: <1m Magaly B Pettey B. 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 Specimen is serially sectioned and entirely submitted in cassette B1 for decal. Cold Time: 1m Magaly B Pettey C. LEFT NASAL SINUS CONTENTS Received in formalin labeled l eft nasal sinus contents , is an aggregate of pink-red nodular soft tissue fragments measuring 6.2 x 5.8 x 1.8 cm. Change Management Coordinator sections are submitted in cassettes C1-C3. Cold Time: <1m Magaly B Pettey 01/17/2025 11:02 AM EDT [facility] Note: A resident was involved in the service. I attest I examined the relevant preparations for the specimens and confirmed the diagnosis or interpretation. 01/17/2025 11:02 AM EDT [facility] Tissue Structure of right anterior naris / Unknown 01/11/2025 2:22 PM EDT 01/11/2025 4:47 PM EDT Comment:Pre-op diagnosis: Chronic rhinosinusitis with multiple nasal polyps [J32.9, J33.9] Nasal septal deviation [J34.2] Tissue specimen (specimen) Structure of right anterior naris / Unknown 01/11/2025 2:22 PM EDT 01/11/2025 4:47 PM EDT Comment:Pre-op diagnosis: Chronic rhinosinusitis with multiple nasal polyps [J32.9, J33.9] Nasal septal deviation [J34.2] Tissue specimen (specimen) Structure of left anterior naris / Unknown 01/11/2025 4:13 PM EDT 01/11/2025 4:47 PM EDT Comment:Pre-op diagnosis: Chronic rhinosinusitis with multiple nasal polyps [J32.9, J33.9] Nasal septal deviation [J34.2] us Clinton Wilson MD LAB PATHOLOGY ORDERABLES Fin al Result [facility] [address] [place] [address] * DE AN ELECTIVE ENDOTRACHEAL AIRWAY, PB ANESTHESIA PLACEHOLDER (01/11/2025 11:35 AM EDT) Narrative Debra Rod CRNA - 01/11/2025 11:35 AM EDT Debra Rod CRNA 01/11/2025 11:55 AM Airway Date/Time: 01/11/2025 11:35 AM Reason: elective Airway not difficult General Information and Staff Patient location during procedure: OR Anesthesiologist: Abimael Reyes MD CLOSING MACHINE OPERATOR: Debra Rod CRNA Performed: XENIA Patient Condition Indications for airway management: anesthesia Patient position: sniffing Final Airway Details Final airway type: endotracheal airway Successful airway: ETT and CARIE tube Cuffed: yes Successful intubation technique: direct laryngoscopy Adjuncts used in placement: intubating stylet Endotracheal tube insertion site: oral Blade: Krishnamurthy Blade size: #2 ETT size (mm): 8.0 Cormack-Lehane Classification: grade I - full view of glottis Placement verified by: chest auscultation and capnometry Measured from: lips Additional Comments Atraumatic. No change to dentition. Teeth and soft tissue intact after intubation us Abimael Reyes MD ANESTHESIA ORDERABLES Parrish vargas Result - Final from Last 3 Months Insurance [employer] Care Teams Environmental Department Manager Relationship Specialty Start Date End Date Gwyn Green MD [address] [place] [address] PCP - General 09/07/20
--- OUTSIDE RECORDS SUMMARY | 2025-03-22 19:14 | XMS_ITS | Referral Summary ---
Author Organization [employer] ([place], [place], [place], [place], [place]) Address [address] [place] [address] Care Team Providers Care Meat Specialist Name Role Phone Ghazala Kaur HALIE Primary Care Provider [phone] Allergies No known active allergies Medications No known medications Social History Tobacco Use Types Packs/Day Years Used Date Smoking Tobacco: Every Day Smokeless Tobacco: Never Comments:vape Alcohol Use Standard Drinks/Week Comments Not Currently 0 (1 standard drink = 0.6 oz pur e alcohol) Food Insecurity Answer Date Recorded Food run out past 12 months Not on file 04/28 Food did not last past 12 months Not on file 05/16/2023 Employment Answer Date Recorded Help finding and keeping a job Not on file 0 05/16/2023 Family and Community Support Answer Anshu e Recorded Help with Day to Day Activities Not on file 05/16/2023 Feeling Lonely or Isolated Not on file 05/16 Educational Attainment Answer Date Fab rded Speak language other than Welsh at home Not on file 05/16/2023 Want help with school or training Not on file 05/16/2023 Substance Use Answer Date Recorded Used prescription meds for non-medical reasons N ot on file 05/16/2023 Used illegal drugs past 12 months Not on file 05/16/2023 Sex and Gender Information Value Date Recorded Sex Assigned at Not on file Legal Sex Male 6:34 PM CDT Gender Identity Not on file Sexual Orientation Not on file Last Filed Vital Signs Vital Sign Reading Time Taken Comments Blood Pressure 132/68 12/20/2022 8:53 PM EDT Pulse 89 12/20/2022 8:53 PM EDT Temperature - - Respiratory Rate 17 12/20/2022 8:53 PM EDT Oxygen Saturation 100% 12/20/2022 8:53 PM EDT Inhaled Oxygen Concentration - - Weight 95.3 kg (210 lb) 12/20/2022 7:40 PM EDT Height 177.8 cm (5' 10 ) 12/20/2022 7:40 PM EDT Body Mass Index 30.13 12/20/2022 7:40 PM EDT Plan of Treatment Not on file Insurance [employer] Care Teams Meat Specialist Relationship Specialty Start Date End Date Ghazala Kaur, MILK TANKER DRIVER [address] [phone] PCP - General Family Medicine 12/20/22
--- OUTSIDE RECORDS SUMMARY | 2025-03-22 19:14 | XMS_ITS | Encounter Summary ---
Author Organization Healthcare Address [address] [place] [address] Care Team Providers Care Home Health Physical Therapist Name Role Phone Gwyn Green MD Primary Care Provider Encounter Details Date Type Department Care Team (Late st Contact Info) Description 01/30/2025 Telephone [facility] Otol[facility]ology [address] [place] [address] Marielena Payne Social History Tobacco Use Types Packs/Day Years [...] plan has been documented for the patient 01/19/2025 10:32 AM EDT documented as of this encounter Care Teams Home Health Physical Therapist Relationship Specialty Start Date End Date Gwyn Green MD [facility] [place] [phone] PCP - General 09/07/20 documented as of this encounter
--- OUTSIDE RECORDS SUMMARY | 2025-03-22 19:14 | XMS_ITS | Clinical Summary ---
Author Organization [employer] ([place], [place], [place], [place], [place]) Address [address] [place] [address] Care Team Providers Care Calibration Checker Name Role Phone Ghazala Kaur APRN Primary Care Provider [phone] Allergies No known active allergies Medications No [...] Date Fab rded Speak language other than Croatian at home Not on file 05/16/2023 Want [...] 12/20/2022 7:40 PM EDT Plan of Treatment Health Maintenance Due Date Last Done Comments Depression Screening (12+) 2012 HIV Screening 12/26/2015 Hepatitis C Screening 2018 DTAP/TDAP/TD VACCINES (1 - Tdap) 12/26/2019 Pneumococcal Vaccine: 0-49 Years (1 of 2 - PCV) 2019 Lipid Panel 2020 Tobacco Cessation Counseling and Screening (12+) 12/2012/20/2022 COVID-19 VACCINE ( - season) 2024 Influenza Vaccine (#1) 2024 01/18/2016 Insurance [employer] Care Teams Calibration Checker Relationship Specialty Start Date End Date Ghazala Kaur, RESTAURANT CREW [address] [facility] [address] [place] [phone] PCP - General Family Medicine 12/20/22
--- OUTSIDE RECORDS SUMMARY | 2025-03-22 19:14 | XMS_ITS | Clinical Summary ---
Author Organization [facility] Address [address] [place] [address] Care Team Providers Care Administrative Services Officer Name Role Phone Santa Ferreira Primary Care Provider [phone] Allergies Active Allergy Reactions Criticality Noted Date Comments Pineapple Rash Medium 01/18/2016 Medications QUEtiapine Fumarate (SEROQUEL PO) Take by mouth. A ctive olopatadine (PATANOL) 0.1 % ophthalmic solution INSTILL 1 DROP INTO BOTH EYES TWICE A DAY DIRECTED 11 9 Active brompheniramine-p seudoephedrine-DM 30-2-10 MG/5ML syrupIndications: Seasonal allergic rhinitis, unspecified trigger Take 10 mL by mouth 4 (Four) Times a Day As Needed for Congestion, Cough or Allergies. 200 mL 9 Active albuterol sulfate HFA 108 (90 Base) MCG/ACT inhalerIndication s:Mild intermittent asthma with exacerbation Inhale 2 puffs Every 4 (Four) Hours As Needed for Wheezing or Shortness of Air. 1 inhaler 1 9 Active Immunizations Immunization Administration Dates Next Due Fluzone Quad >6mos (Multi-dose) 01/18/2016 Social History Tobacco Use Types Packs/Day Years Used Date Smoking Tobacco: Never Abuse Screen Answer Date Recorded Unsafe at Home or Work/School Not on file Feels Threatened by Someone? Not on file 12/2022 Does Anyone Keep You from Co ntacting Others or Doint Things Outside the Home? Not on file 02/02/2023 Physical Sign of Abuse Present Not on file 1 Housing Stability Answer Date Recorded Current Living Arrangements Not on file 12/2022 Potentially Unsafe Housing Conditions Not on manny e 02/02/2023 Family and Community Support Answer Anshu e Recorded Help with Day-to-Day Activities Not on file 02/02/2023 Lonely or Isolated Not on file 02/02/2023 Employment Answer Date Recorded Do you want help finding or keeping work or a bashir b? Not on file 02/02/2023 Disabilities Answer Date Recorded Concentrating, Remembering, or Making Decisions Difficulty Not on file 02/02/2023 Doing Errands Independently Difficulty Not on fi le 02/02/2023 Education Answer Date Recorded Help with school or training? Not on file Preferred Language Not on file 02/02/2023 Sex and Gender Information Value Date Recorded Sex Assigned at Not on file Legal Sex Male 11:46 AM EDT Gender Identity Not on file Sexual Orientation Not on file Last Filed Vital Signs Vital Sign Reading Time Taken Comments Blood Pressure - - Pulse 90 09/24/2018 9:48 AM EDT Temperature 36.1 C (97 F) 09/24/2018 9:48 AM EDT Respiratory Rate 20 09/24/2018 9:48 AM EDT Oxygen Saturation 92% 09/24/2018 9:48 AM EDT Inhaled Oxygen Concentration - - Weight 123 kg (271 lb) 09/24/2018 9:48 AM EDT Height 168.9 cm (5' 6.5 ) 09/24/2018 9:48 AM EDT Body Mass Index 43.09 09/24/2018 9:48 AM EDT Plan of Treatment Health Maintenance Due Date Last Done Comments ANNUAL PHYSICAL 05/16/2018 HEPATITIS C SCREENING 05/16/2018 TDAP/TD VACCINES (1 - Tdap) 12/26/2019 INFLUENZA VACCINE 11/25/2024 01/18/2016 MENINGOCOCCAL B VACCINE Aged Out No l onger eligible based on patient's age to complete this topic Pneumococcal Vaccine 0-49 Aged Out No longer eligible based on patient's age to complete this topic Insurance [facility] PPO Member Subscriber Plan / Payer (Ef fective 2013-Present) Name:Santy Valencia Relation to Subscriber:Child Name:MADELIN CAMACHO Date of :1968 Address: [address] [place] [address] Payer ID:[id number] (NAIC) Type:Not on file Address: [facility] [address] [place] [id number] Care Teams Administrative Services Officer Relationship Specialty Start Date End Date Santa Ferreira PA [address] [address] PCP - General Family Medicine 01/18/16
--- OUTSIDE RECORDS SUMMARY | 2025-03-22 19:14 | XMS_ITS ---
Author Organization Unknown ENCOUNTERS Encounter Performer Location Date Diagnosis Diagnosis Status Pre Admit [place] [phone] [facility] [address] [place] [address] [id number] Emergency [place] [phone] [facility] [address] [place] [address] [id number] Emergency [address] [place] [address] [id number] Emergency [address] [place] [address] [id number] [facility] [address] [place] [address] [id number] Emergency RUBÉN MAYANK[address] [place] [address] [id number] Inpatient LYNDON LATHAM [address] [place] [address] [id number] Emergency [address] [place] [address] [id number] Emergency [address] [place] [address] [id number] Emergency CATA STANTONFLER [address] [place] [address] [id number] Emergency [address] [place] [address] [id number] *Note: Encounters from your own facility or health system may be excluded. Allergies, Adverse Reactions, Alerts Allergen Type Severity Identification Date Pineapple drug allergy 2 [id number] Medications Name Date Quantity Days Supplied GPI Number
--- OUTSIDE RECORDS SUMMARY | 2025-03-22 19:14 | XMS_ITS | Encounter Summary ---
Author Organization [facility] Address [address] [place] [id number] Care Team Providers Care Fruit Thinner Machine Operator Name Role Phone Gwyn Green MD Primary Care Provider [phone] Encounter Details Date Type Department Care Team (Latest Contact Info) Description 02/02/2025 Travel Social History Tobacco Use Types Packs/Day [...] documented as of this encounter Care Teams Fruit Thinner Machine Operator Relationship Specialty Start Date End Date Gwyn Green MD [address] [place] [address] PCP - General 09/07/20 documented as of this encounter
--- OUTSIDE RECORDS SUMMARY | 2025-03-22 19:14 | XMS_ITS | Encounter Summary ---
Author Organization Healthcare Address [address] [place] [address] Care Team Providers Care Altitude Chamber Technician Name Role Phone Gwyn Green MD Primary Care Provider [phone] Reason for Visit * Reason Onset Date Comments [facility] Clinical Concern/Question 01/26/2025 Encounter Details Date Type Department Care Team (Late st Contact Info) Description 01/26/2025 [facility]phone [facility] [address], [address] [place] [address] Clinton Wilson MD [address] [place] [address] [facility] Clinical Concern/Question Social History Tobacco Use Types Packs/Day Years [...] on file documented as of this encounter Miscellaneous Notes * Telephone Encounter - Marielena Payne - 01/30/2025 10:53 AM EDT Pt has an appt 02/02/25 @ 2:[address] Wilson * Telephone Encounter - Ping Sosa - 01/30/2025 9:17 AM EDT Status Update Call #2 2nd call regarding the status of the initial request. Best contact number: [phone] (home) Optimal time of day to reach caller: ANYTIME Additional comments/information from caller: Note: Please do not reply to this message. Follow-up communication and further actions as a result of this message need to be communicated with the patient directly, if the patient is not active onMyChart. If the patient is active on MyChart, they will receive notification of the communication/outcome via MyChart. * Telephone Encounter - Marielena Payne - 01/27/2025 11:29 AM EDT Sent message to provider. * Telephone Encounter - Brynn Garcia - 01/26/2025 4:14 PM EDT Status Update Call #1 1st call regarding the status of the initial request. Best contact number: [phone] (home) Optimal time of day to reach caller: ANYTIME Additional comments/information from caller: None Note: Please do not reply to this message. Follow-up communication and further actions as a result of this message need to be communicated with the patient directly, if the patient is not active onMyChart. If the patient is active on MyChart, they will receive notification of the communication/outcome via MyChart. * Telephone Encounter - Ni Paz - 01/26/2025 3:48 PM EDT Clinical Concern/Question Reason for Call: Patient has eye pressure and pain and nasal bleeding asking to talk to nurse Best contact number: Other: [phone] Optimal time of day to reach caller: ANYTIME Additional comments/information from caller: None Note: Please do not reply to this message. Follow-up communication and further actions as a result of this message need to be communicated with the patient directly, if the patient is not active onMyChart. If the patient is active on MyChart, they will receive notification of the communication/outcome via [employer]. documented in this encounter Plan of Treatment Not on file documented as of this encounter Visit Diagnoses Not on filedocumented in this encounter Additional Health Concerns Assessment Noted Time A Body Mass Index follow-up plan has been documented for the patient 01/19/2025 10:32 AM EDT documented as of this encounter Care Teams Altitude Chamber Technician Relationship Specialty Start Date End Date Gwyn Green MD [address] [place] [address] PCP - General 09/07/20 documented as of this encounter
--- NOTE | 2025-03-22 19:19 | ECG_ITS ---
APPROVED REPORT Exam: Resting ECG HR:78 bpm ECG Measurements Heart Rate 78 AXES IA 140 P 28 QRSd 91 QRS 40 QT 360 T 16 QTc 393 Conclusion SINUS RHYTHM NORMAL ECG Electronically signed by : KAT CEJA, 03/23/2025 13:51:14
[2025-03-22 19:20] LABS: Hematocrit 45.1 % (42.0-52.0); Hemoglobin 14.9 g/dL (14.1-18.0); Immature Granulocytes % 0.3 %; Mean Corpuscular HGB Conc 33.0 g/dL (31.8-35.4); Mean Corpuscular Hemoglobin 30.2 pg (27.0-31.2); Mean Corpuscular Volume 91.5 fl (80-94); Nucleated Red Blood Cells % 0 %; Platelet Count 280 K/mm3 (142-424); Red Blood Count 4.93 M/mm3 (4.60-6.20); Red Cell Distribution Width-SD 41.3 fL; White Blood Count 8.7 K/mm3 (4.8-10.8)
[2025-03-22 19:32] LABS: Alanine Aminotransferase 41 U/L (12-78); Albumin Level 4.7 g/dl (3.5-5.0); Albumin/Globulin Ratio 1.6 (1.1-1.8); Alkaline Phosphatase 93 U/L (38-126); Anion Gap 10.6 mEq/L (5-15); Aspartate Amino Transferase 34 U/L (17-59); Bilirubin,Total 0.5 mg/dl (0.2-1.3); Blood Urea Nitrogen 13 mg/dl (9-20); Calcium 8.8 mg/dl (8.4-10.2); Carbon Dioxide 27 mmol/L (22.0-30.0); Chloride 100 mmol/L (98-107); Creatinine Clearance Estimated 95 mL/min (50-200); Creatinine,Serum 1.20 mg/dl (0.66-1.25); Estimated Glomerular Filt Rate 74 ml/min (>60); GFR (African American) 90 ML/MIN (>60); Globulin 3.0 g/dL (1.3-3.2); Glucose 90 mg/dl (74-100); Lipase 57 U/L (23-300); Potassium 3.6 mmoL/L (3.5-5.1); Sodium 134 mmol/L (136-145); Total Protein,Serum 7.7 g/dl (6.3-8.2)
[2025-03-22 19:38] LABS: D-Dimer 0.59 ug/mL (0.0-0.5)
[2025-03-22 19:46] LABS: Troponin I < 0.01 ng/ml (0.00-0.034)
[2025-03-22 22:36] LABS: Troponin I < 0.01 ng/ml (0.00-0.034)
--- NOTE | 2025-03-22 22:37 | [facility].EDCP ---
Discharge Plan Disposition Patient Disposition: Home, Self-Care Condition: Good Prescriptions Prescriptions: No Action albuterol sulfate 90 mcg/actuation HFA aerosol inhaler inhalation Patient Comments: INHALE 2 PUFFS BY MOUTH EVERY 4 HOURS NEEDED Referrals Follow up/Referrals: Ghazala Kaur APRN [Primary Care Provider, Medical] - See instructions Activity Restrictions/Add. Instructions Additional Instructions/Restrictions: If you develop fevers, worsening phlegm production, or any other new or worsening symptoms please return to the ER for further evaluation. Clinical Impressions Clinical Impression: Acute cough Print Language Print Language: [place]araguan Discharge ED Provider: Geovanny Cheatham General Chief Complaint: Shortness of Breath/Dyspnea Stated Complaint: burning in chest, SOA, coughing up blood Time Seen by Provider: 03/22/25 18:58 Mode of Arrival: Ambulatory Source of Information: Patient Description of Symptoms (Recalled from ER Triage Doc. by RN): patient presents for ongoing shortness of breath and bloody sputum. franklin stated he is an asthmatic and has celio using his inhalers. lloydtent in no respiratpry distress at this time. History of Present Illness HPI narrative: This is a 24-year-old male patient, with past medical history of asthma, who is presenting to the emergency department today for evaluation of a cough. Patient states that he has been coughing over the period of the last couple of weeks. He tells me that over the last 24 hours he has begun experiencing some specks of blood in his sputum. He estimates less than a teaspoon of blood total over the last 24 hours. He has not had any fevers. He does vape but he does not smoke. He states that he has felt wheezy at times and he has required nebulizer treatments at home but he does not currently feel wheezy. Additionally, he is experiencing some chest pain as well that is not exertional in nature and does not radiate Related Data Home Medications ?Medication ?Instructions ?Recorded ?Confirmed albuterol sulfate 90 mcg/actuation inhalation 08/10/24 08/24/24 aerosol inhaler Allergies Allergy/AdvReac Type Severity Reaction Status Date / Time No Known Allergies Allergy Verified 08/24/24 13:45 [facility] Disclaimer: The information contained in this section may have been updated after the patient was seen, as this information can be updated by other users. Medical History (Updated 03/22/25 @ 22:38 by Geovanny Cheatham DO) Nasal turbinate hypertrophy Deviated septum Chronic sinusitis Nasal congestion Vertigo Sinus pressure Sinus pain History of esophageal dilatation Esophageal dilatation Asthma Bipolar 1 disorder Family History (Updated 08/10/24 @ 09:59 by RAN Foster) Father Diabetes Mother FHx: mental illness Family/Other FHx: mental illness Social History (Updated 08/10/24 @ 10:00 by RAN Foster) Smoking Status: Heavy tobacco smoker tobacco type: e-cigarettes alcohol intake: current alcohol intake frequency: holidays/special occasions only substance use type: denies use current occupational status: unemployed Travel in the last 8 weeks?: None Have you lived/traveled outside [place] in past 30 days?: No Contact w/someone who lives/traveled outside US past 30 days?: No Exposure to someone with infectious disease in past 14 days?: No Do you have a fever (greater than 100.4 F or 38 C)?: No Have you tested positive for COVID-19?: No Exposed to someone with COVID-19 in past 14 days?: No Do you have a sore throat?: No Do you have a cough?: No Do you have any weakness?: No Do you have any diarrhea?: No Are you experiencing any unusual bleeding?: No Do you have any muscle aches/pain?: No Do you have any abdominal pain?: No Are you experiencing loss of taste or smell?: No Other Medical History Have you received the Pneumonia Vaccine: No ROS Obtained: Yes Systems reviewed as appropriate & no additional complaints except as documented Physical Exam General General appearance: other (See MDM) Respiratory Respiratory exam: Present other (See MDM) Cardiovascular Cardiovascular exam: Present other (See MDM) Neurological Exam Neurological exam: Present other (See MDM) HEART Score HEART Score HEART Score assessment performed?: Yes History (anamnesis): Slightly suspicious ECG: Normal Age: <45 years Risk factors: No known risk factors Troponin: </= normal limit HEART Score: 0 Critical Care Critical Care Time Critical Care Time: No Medical Decision Making Medical Records Medical records reviewed: Yes I reviewed the patient's medical records. Tonny Inquiry Pt receiving controlled substance: No Tonny was queried for this patient: No Vital Signs Vital Signs: 03/22/25 19:07 03/22/25 19:12 03/22/25 23:01 Temperature 98.3 F 98.4 F Temperature Source Oral Oral Pulse Rate 74 Pulse Rate [Right Radial] 90 Respiratory Rate 20 18 Blood Pressure 118/78 Blood Pressure [Right Arm] 145/93 H Blood Pressure Mean [Right Arm] 110 Blood Pressure Source [Right Arm] Automatic Cuff Blood Pressure Position [Right Arm] Sitting 02 Sat by Pulse Oximetry 98 100 Oxygen Delivery Method Room Air Room Air Room Air Lab Data Labs: Lab Results 03/22/25 19:12: WBC 8.7, RBC 4.93, Hgb 14.9, Hct 45.1, MCV 91.5, MCH 30.2, MCHC 33.0, RDW 12.4, Plt Count 280, MPV 11.6 H, Neut % (Auto) 55.6, Lymph % (Auto) 25.6, [place] % (Auto) 11.9 H, Eos % (Auto) 5.9, Baso % (Auto) 0.7, Neut # (Auto) 4.8, Lymph # (Auto) 2.2, [place] # (Auto) 1.0, Eos # (Auto) 0.5 H, Baso # (Auto) 0.1, D-Dimer 0.59 H, Sodium 134 L, Potassium 3.6, Chloride 100, Carbon Dioxide 27, Anion Gap 10.6, BUN 13, Creatinine 1.20, Estimated Creat Clear 95, Estimated GFR 74, Est GFR ( Amer) 90, Glucose 90, Calcium 8.8, Total Bilirubin 0.5, AST 34, ALT 41, Alkaline Phosphatase 93, Troponin I < 0.01, Total Protein 7.7, Albumin 4.7, Globulin 3.0, Albumin/Globulin Ratio 1.6, Lipase 57 03/22/25 22:05: Troponin I < 0.01 03/22/25 19:12 03/22/25 19:12 Response Orders (Tests/Meds): ORDERS Category Date Time Status CXR 2 view (NOT portable) [XR chest 2V] Stat Exams 03/22/25 19:06 Completed CBC w/Auto Diff [Complete Blood Count Auto Diff] Stat Lab 03/22/25 19:12 Completed CMP [Comprehensive Metabolic Panel] Stat Lab 03/22/25 19:12 Completed D-Dimer Stat Lab 03/22/25 19:12 Completed Lipase Stat Lab 03/22/25 19:12 Completed Troponin I Q3H Lab 03/22/25 22:05 Completed Troponin I Stat Lab 03/22/25 19:12 Completed MDM Narrative Medical Decision Narrative: In summary, this is a 24-year-old male patient who is presenting to the emergency department today for cough and very mild hemoptysis as well as chest pain. His comorbidities include a past medical history of asthma. He does not currently feel short of breath. On initial evaluation of the patient they were resting comfortably in no acute distress and nontoxic in appearance. They are hemodynamically stable, saturating well room air, and are neurologically intact. On physical examination the patient's heart and lungs are clear to auscultation bilaterally. His abdomen is soft and nontender. Radial pulses are equal and symmetric bilaterally. He has no lower extremity erythema or edema. Differential diagnosis includes bronchitis, viral syndrome, ACS/[place], pulmonary embolism, electrolyte arrangement, acute kidney injury, pneumonia, among others Workup is initiated with hematologic labs as well as an EKG and chest x-ray Labs were personally interpreted by me and demonstrate no leukocytosis, no anemia, no electrolyte derangement or acute kidney injury. Initial troponin is less than 0.01 and delta troponin is also less than 0.01. Patient's D-dimer is 0.59, however I do feel that he is low risk for pulmonary embolism and that his presentation is more consistent with a viral type syndrome/bronchitis. Therefore by years criteria he does not necessitate any further workup for pulmonary embolism. EKG was personally interpreted by me and demonstrates normal sinus rhythm at a rate of 78 bpm, normal axis, no OK prolongation, narrow QRS, no QTc prolongation. No ST elevation or depression. No STEMI Chest x-ray was personally interpreted by me and demonstrates no lobar consolidation or pleural effusion. Official radiology read is in agreement and states that there is no acute abnormality. On repeat assessment the patient he feels essentially asymptomatic. We have not observed the patient coughing here in the emergency department. He certainly has not had any evidence of ongoing hemoptysis while here in the emergency department. I have discussed with the patient that this is likely a viral syndrome. I have advised him to return to the emergency department if he experiences worsening shortness of breath, worsening chest pain, or worsening hemoptysis. At this time all questions have been answered and all parties are agreeable with the decision to discharge
[2025-03-22 23:01] VITALS: BP 118/78; PULSE 74; RESP 18; TEMP 36.9; O2SAT 98
== END 2025-03-22 23:05 | disposition home or self-care (01) ==
PROVIDERS: Emergency Provider Student in an Organized Health Care Education/Training Program; PCP Nurse Practitioner
DX: R05.1 Acute cough (principal); R04.2 Hemoptysis; R07.9 Chest pain, unspecified; J45.909 Unspecified asthma, uncomplicated; F17.290 Nicotine dependence, other tobacco product, uncomplicated; F31.9 Bipolar disorder, unspecified
CPT/HCPCS: 71046; 80053; 83690; 84484; 85025; 85378; 93005; 99284